=== PATIENT | female | born 1980 ===

== ENCOUNTER 2021-12-28 20:11 | Emergency (ER) | payer OTHER ==
[~2021-12-28] VITALS: Ht 172.7 cm; Wt 72.7 kg
[2021-12-28] MEDS ORDERED: FLUORESCEIN SODIUM 1 MG STRIP OD ONE (20:45)
[2021-12-28] MEDS ORDERED: PROPARACAINE HCL 0.5% 15 ML OPHTHALMIC SOLUTION OD ONE (20:45)
[2021-12-28] MEDS ORDERED: ERYT3.5O8 OD (21:40)
[2021-12-28 21:45] VITALS: BP 105/64
== END 2021-12-28 21:44 | disposition home or self-care (01) ==
LOC: EMS 20:15
DX: S05.01XA Injury of conjunctiva and corneal abrasion without foreign body, right eye, initial encounter (principal); X58.XXXA Exposure to other specified factors, initial encounter; Y93.89 Activity, other specified; Y92.89 Other specified places as the place of occurrence of the external cause; Y99.0 Civilian activity done for income or pay
CPT/HCPCS: 99283